=== PATIENT | male | born 1975 | race Caucasian/White ===

== ENCOUNTER 2017-02-28 11:36 | Outpatient (CLI) | payer OTHER ==
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
== END 2017-02-28 11:37 ==
LOC: RAD 11:36
PROVIDERS: ATTEND Physician Assistant
DX: M54.2 Cervicalgia (principal); M54.9 Dorsalgia, unspecified; M25.511 Pain in right shoulder
CPT/HCPCS: 72040; 72072; 73030